=== PATIENT | female | born 1990 | race African-American/Black ===

== ENCOUNTER 2018-12-05 21:15 | Inpatient (IN) | payer OTHER ==
[2018-12-05] MEDS ORDERED: ASPIRIN 81 MG CHEWABLE TABLETS PO ONE (21:21)
--- NOTE | 2018-12-05 21:21 | PDOC ---
Rapid Medical Evaluation Time Seen by Provider: 12/05/18 21:18 Medical Evaluation: Allergies Allergy/AdvReac Type Severity Reaction Status Date / Time No Known Allergies Allergy Verified 12/26/15 18:49 12/05/18 21:18 HPI: foot swelling and palpatations x2 days with associated CP and SOB; denies possibility of PE: no gross deficits ORDERS: BNP Cardiac work up EKG Discharge Disposition - Diagnosis Heart palpitations, SOB (shortness of breath) - Referrals - Patient Instructions - Post Discharge Activity
[2018-12-05 21:25] VITALS: BMI 26.6
--- NOTE | 2018-12-05 23:26 | PDOC ---
*Physical Exam - Vital Signs Last Vital Signs Temp Pulse Resp BP Pulse Ox 97.5 F L 70 20 136/81 100 12/05/18 21:22 12/05/18 21:22 12/05/18 21:22 12/05/18 21:22 12/05/18 21:22 Medical Decision Making - Medical Decision Making 12/05/18 23:25 Patient seen by the advanced practice provider under my direct supervision. Ancillary testing reviewed as necessary. I agree with plan as outlined by the advanced practice provider. *DC/Admit/Observation/Transfer Diagnosis at time of Disposition: Heart palpitations, SOB (shortness of breath) - Referrals - Patient Instructions - Post Discharge Activity
[2018-12-05] MEDS ORDERED: ASPIRIN 81 MG CHEWABLE TABLETS ONE (23:28)
--- NOTE | 2018-12-05 23:41 | PDOC ---
History of Present Illness - General Chief Complaint: Palpitations Stated Complaint: FEET SWELLING/PALPATION Time Seen by Provider: 12/05/18 21:18 History Source: Patient - History of Present Illness Initial Comments: 12/05/18 23:37 28 year old female with b/l feet swelling and palpitations 4 days ago. patient reports that she has been having palpations on and off. patient c/o chest pain worse with breathing. denies health supplements use or drug abuse. patient reports she traveled to [facility] 1 month ago 12/05/18 23:40 12/05/18 23:43 Past History - Past Medical History Allergies/Adverse Reactions: Allergies Allergy/AdvReac Type Severity Reaction Status Date / Time No Known Allergies Allergy Verified 12/26/15 18:49 Home Medications: Ambulatory Orders Famotidine [Pepcid] 20 mg PO BID #60 tablet 12/27/15 Asthma: No Cancer: No Cardiac Disorders: No CVA: No COPD: No CHF: No - Suicide/Smoking/Psychosocial Hx Smoking History: Never smoked Have you smoked in the past 12 months: No Hx Alcohol Use: Yes Drug/Substance Use Hx: No Substance Use Type: Alcohol Cardiac Specific PMH - Complaint Specific PMHX Myocardial Infarction: No Review of Systems - Review of Systems Able to Perform ROS?: Yes Is the patient limited Moldovan proficient: No Cardiac (ROS): Yes: Chest Pain, Lightheadedness, Palpitations, Chest Tightness ABD/GI: Yes: Nausea. No: Symptoms Reported, See HPI, Abdominal Distended, Abd. Pain w/ defecation, Blood Streaked Bowels, Constipated, Diarrhea, Difficulty Swallowing, Poor Appetite, Poor Fluid Intake, Rectal Bleeding, Vomiting, Indigestion, Abdominal cramping, Tarry Stools, Other Integumentary: Yes: Other (Edema) *Physical Exam - Vital Signs Last Vital Signs Temp Pulse Resp BP Pulse Ox 98.1 F 68 20 128/69 97 12/06/18 02:45 12/06/18 03:15 12/06/18 03:15 12/06/18 03:15 12/06/18 03:16 - Physical Exam General Appearance: Yes: Appropriately Dressed Respiratory/Chest: positive: Lungs Clear, Normal Breath Sounds Cardiovascular: positive: Regular Rhythm, Regular Rate Gastrointestinal/Abdominal: positive: Normal Bowel Sounds, Soft. negative: Tender Musculoskeletal: positive: Normal Inspection Extremity: positive: Pedal Edema (b/l ) Integumentary: positive: Normal Color, Dry, Warm Neurologic: positive: supervisor international reservations II-XII NML intact, Fully Oriented, Alert, Normal Mood/ Affect Heart Score/ECG Review - History History: Slightly suspicious - Electrocardiogram EKG: Normal - Age Age: </= 45 - Risk Factors Based on the list above the patient has:: No risk factors known - Troponin Troponin: </= normal limit - Score Heart Score - Total: 0 - ECG Intrepretation Rhythm: Regular Rhythm Comment:: 12/06/18 05:26 Sinus bradycardia : 59 bpm ED Treatment Course - LABORATORY CBC & Chemistry Diagram: 12/05/18 23:45 12/05/18 23:45 - ADDITIONAL ORDERS Additional order review: Laboratory Results 12/06/18 12/06/18 12/05/18 00:27 00:27 23:45 PT with INR 16.60 H INR 1.40 H D-Dimer 547 H Sodium Potassium Chloride Carbon Dioxide Anion Gap BUN Creatinine Est GFR (CKD-EPI)AfAm Est GFR (CKD-EPI)NonAf Random Glucose Calcium Magnesium Total Bilirubin AST ALT Alkaline Phosphatase Creatine Kinase Creatine Kinase Index CK-MB (CK-2) Troponin I B-Natriuretic Peptide Total Protein Albumin Serum , Qual Negative 12/05/18 12/05/18 12/05/18 23:45 23:45 23:45 PT with INR INR D-Dimer Sodium 141 Cancelled Potassium 3.3 L Cancelled Chloride 107 Cancelled Carbon Dioxide 27 Cancelled Anion Gap 7 L Cancelled BUN 10.7 Cancelled Creatinine 0.8 Cancelled Est GFR (CKD-EPI)AfAm 117.10 Cancelled Est GFR (CKD-EPI)NonAf 101.04 Cancelled Random Glucose 94 Cancelled Calcium 9.3 Cancelled Magnesium 2.2 Total Bilirubin 0.4 Cancelled AST 172 H Cancelled ALT 142 H Cancelled Alkaline Phosphatase 69 Cancelled Creatine Kinase 814 H Creatine Kinase Index 0.8 CK-MB (CK-2) 7.2 H Troponin I < 0.02 B-Natriuretic Peptide 51.8 Total Protein 8.1 Cancelled Albumin 4.1 Cancelled Serum , Qual 12/05/18 23:45 RBC 4.26 MCV 75.4 L MCHC 31.9 L RDW 21.3 H MPV 8.6 Neutrophils % 39.1 L D Lymphocytes % 50.0 H D Monocytes % 8.9 Eosinophils % 1.1 D Basophils % 0.9 - RADIOLOGY Radiology Studies Ordered: Category Date Time Status CHEST CTA [CT] Stat CT Scan 12/06/18 01:01 Taken DUPLEX VASCUL US-2LEGS [US] Stat Ultrasound 12/06/18 01:20 Taken - Medications Given in the ED: ED Medications Discontinued Medications Generic Name Dose Route Start Last Admin Trade Name Freq PRN Reason Stop Dose Admin Aspirin 162 mg 12/05/18 21:21 12/05/18 23:20 Asa - PO 12/05/18 21:22 162 mg ONCE ONE Administration Medical Decision Making - Medical Decision Making 12/06/18 01:05 A: pleuritic chest pain P: cbc cmp d-dimer cardiac enzymes 12/06/18 03:20 US: no dvt 12/06/18 05:08 patient signed out to Dr. whitman for obs tele pending repeat cardiac enzymes *DC/Admit/Observation/Transfer Diagnosis at time of Disposition: Heart palpitations, SOB (shortness of breath) - Discharge Dispostion Decision to Admit order: Yes Decision to Admit order Date/Time: Decision to Admit Order Category Date Time Status Decision to Admit to Hospital Routine Admission 12/06/18 04:58 Active - Referrals - Patient Instructions - Post Discharge Activity
[2018-12-05 23:52] LABS: BASO % 0.9 % (0-2.0); EOS % 1.1 % (0-4.5); HEMATOCRIT 32.1 % (32.4-45.2); HEMOGLOBIN 10.2 GM/dL (10.7-15.3); MCHC 31.9 g/dl (32.0-36.0); MEAN CELL VOLUME 75.4 fl (80-96); MEAN PLT VOLUME 8.6 fl (7.5-11.1); MONO % 8.9 % (3.8-10.2); NEUT % 39.1 % (42.8-82.8); PLATELET COUNT 251 K/MM3 (134-434); RBC 4.26 M/mm3 (3.60-5.2); RDW 21.3 % (11.6-15.6); WHITE BLOOD COUNT 4.6 K/mm3 (4.0-10.0)
[2018-12-06 00:18] LABS: MAGNESIUM 2.2 mg/dL (1.8-2.4)
[2018-12-06 00:20] LABS: ALBUMIN 4.1 g/dl (3.4-5.0); BILIRUBIN,TOTAL 0.4 mg/dL (0.2-1); BLOOD UREA NITROGEN 10.7 mg/dL (7-18); CALCIUM 9.3 mg/dL (8.5-10.1); CREATININE 0.8 mg/dL (0.55-1.3); N-TERMINAL BNP 51.8 pg/ml (5-125); POTASSIUM 3.3 mmol/L (3.5-5.1); TOT PROT 8.1 g/dl (6.4-8.2)
[2018-12-06 00:40] LABS: INR 1.4 (0.83-1.09); PROTHROMBIN TIME (PATIENT) 16.6 SEC (9.7-13.0)
[2018-12-06 03:34] LABS: ANISOCYTOSIS 2+; MACROCYTOSIS 0; OVALOCYTE 1+; PLATELET ESTIMATE NORMAL; TEAR DROP CELLS 1+
[2018-12-06] MEDS ORDERED: SODIUM CHLORIDE 500 ML IV STA (04:59)
[2018-12-06] MEDS ORDERED: POTASSIUM CHLORIDE TABS 20 MEQ TABLET.ER (FP) PO ONE ×2 (05:07→05:21)
[2018-12-06] MEDS ORDERED: DEXTROSE 5%-0.45% SALINE 1,000 ML IV SCH (06:45)
--- NOTE | 2018-12-06 08:22 | EKG ---
Test Reason : Blood Pressure : / mmHG Vent. Rate : 059 BPM Atrial Rate : 059 BPM P-R Int : 200 ms QRS Dur : 078 ms QT Int : 398 ms P-R-T Axes : 069 070 065 degrees QTc Int : 394 ms SINUS BRADYCARDIA OTHERWISE NORMAL ECG NO PREVIOUS ECGS AVAILABLE Confirmed by VASYL MOSQUEDA, MARIO ([id number]) on 12/06/2018 8:22:02 AM Referred By: Confirmed By:MARIO FALLON MD
[2018-12-06 10:49] LABS: BASO % 1.3 % (0-2.0); EOS % 0.8 % (0-4.5); HEMATOCRIT 32.1 % (32.4-45.2); HEMOGLOBIN 10.4 GM/dL (10.7-15.3); LYMPH % 43.1 % (8-40); MCH 24.3 pg (25.7-33.7); MCHC 32.5 g/dl (32.0-36.0); MEAN CELL VOLUME 74.6 fl (80-96); MEAN PLT VOLUME 8.5 fl (7.5-11.1); MONO % 8.5 % (3.8-10.2); NEUT % 46.3 % (42.8-82.8); PLATELET COUNT 250 K/MM3 (134-434); RDW 21.6 % (11.6-15.6)
[2018-12-06 11:20] LABS: ALBUMIN 4.1 g/dl (3.4-5.0); ALK PHOS 74 U/L (45-117); ANION GAP 5 MMOL/L (8-16); BILIRUBIN,TOTAL 0.5 mg/dL (0.2-1); BLOOD UREA NITROGEN 7.7 mg/dL (7-18); CALCIUM 9.3 mg/dL (8.5-10.1); CHLORIDE 108 mmol/L (98-107); CO2 27 mmol/L (21-32); CREATININE 0.8 mg/dL (0.55-1.3); GLUCOSE,RANDOM 89 mg/dL (74-106); POTASSIUM 3.8 mmol/L (3.5-5.1); SGOT/AST 146 U/L (15-37); SGPT/ALT 158 U/L (13-61); SODIUM 140 mmol/L (136-145)
--- NOTE | 2018-12-06 11:53 | CON.CARD ---
Consult Consult Specialty:: Cardiology - History of Present Illness History of Present Illness: 28 year old female with b/l feet swelling and palpitations 4 days ago. patient reports that she has been having palpations on and off. patient c/o chest pain worse with breathing. denies health supplements use or drug abuse. patient reports she traveled to [facility] 1 month ago - History Source History Provided By: Patient, Medical Record - Past Medical History ...LMP: 12/04/18 ...: (denies) - Alcohol/Substance Use Hx Alcohol Use: Yes (social) - Smoking History Smoking history: Never smoked Have you smoked in the past 12 months: No Home Medications - Allergies Allergies/Adverse Reactions: Allergies Allergy/AdvReac Type Severity Reaction Status Date / Time No Known Allergies Allergy Verified 12/26/15 18:49 - Home Medications Home Medications: Ambulatory Orders Famotidine [Pepcid] 20 mg PO BID #60 tablet 12/27/15 Review of Systems - Review of Systems Constitutional: reports: No Symptoms Eyes: reports: No Symptoms HENT: reports: No Symptoms Neck: reports: No Symptoms Cardiovascular: reports: Chest Pain, Palpitations Respiratory: reports: No Symptoms Gastrointestinal: reports: No Symptoms Genitourinary: reports: No Symptoms Breasts: reports: No Symptoms Reported Musculoskeletal: reports: No Symptoms Integumentary: reports: No Symptoms Neurological: reports: No Symptoms Endocrine: reports: No Symptoms Hematology/Lymphatic: reports: No Symptoms Psychiatric: reports: No Symptoms Vital Signs: Vital Signs Temperature 98 F 12/06/18 11:38 Pulse Rate 66 12/06/18 11:38 Respiratory Rate 18 12/06/18 11:38 Blood Pressure 118/68 12/06/18 11:38 O2 Sat by Pulse Oximetry (%) 100 12/06/18 11:01 Constitutional: Yes: Well Nourished, No Distress, Calm Eyes: Yes: WNL, Conjunctiva Clear, EOM Intact HENT: Yes: WNL, Atraumatic, Normocephalic Neck: Yes: WNL, Supple, Trachea Midline Respiratory: Yes: WNL, Regular, CTA Bilaterally Gastrointestinal: Yes: WNL, Normal Bowel Sounds Renal/: Yes: WNL Cardiovascular: Yes: WNL, Regular Rate and Rhythm Musculoskeletal: Yes: WNL Extremities: Yes: WNL Integumentary: Yes: WNL Neurological: Yes: WNL, Alert, Oriented ...Motor Strength: WNL Psychiatric: Yes: WNL, Alert, Oriented - Other Data Labs, Other Data: CBC, BMP 12/06/18 10:40 12/06/18 10:40 INR, PTT INR 1.40 (0.83-1.09) H 12/05/18 23:45 Troponin, BNP 12/05/18 12/05/18 12/06/18 23:45 23:45 05:20 Troponin I < 0.02 < 0.02 B-Natriuretic Peptide 51.8 Troponin, BNP 12/05/18 12/05/18 12/06/18 23:45 23:45 05:20 Troponin I < 0.02 < 0.02 B-Natriuretic Peptide 51.8 Imaging - Results Cat Scan: Report Reviewed (no pe) EKG: Image Reviewed (s maryanne o/w wnl) Problem List - Problems (1) Heart palpitations Code(s): R00.2 - PALPITATIONS (2) SOB (shortness of breath) Code(s): R06.02 - SHORTNESS OF BREATH (3) Abnormal vaginal bleeding Code(s): N93.9 - ABNORMAL UTERINE AND VAGINAL BLEEDING, UNSPECIFIED (4) GERD (gastroesophageal reflux disease) Code(s): K21.9 - GASTRO-ESOPHAGEAL REFLUX DISEASE WITHOUT ESOPHAGITIS (5) Metrorrhagia Code(s): N92.1 - EXCESSIVE AND FREQUENT MENSTRUATION WITH IRREGULAR CYCLE (6) UTI (urinary tract infection) Code(s): N39.0 - URINARY TRACT INFECTION, SITE NOT SPECIFIED Assessment/Plan palpitations atypical cp no PE on CTA elevated LFTs h/o travel to [facility] bnp elevated CK neg tnis Plan; telemetry 24 holter echo GI eval will f/u
--- NOTE | 2018-12-06 12:16 | ECHO ---
Name: ARCHANA COLORADO Exam:Adult Echocardiogram Study Date: 12/06/2018 08:16 AM Age: 28 yrs Reason For Study: Chest pain Height: 66 in Weight: 165 lb BSA: 1.8 m2 MMode/2D Measurements & Calculations IVSd: 1.1 cm Ao root diam: 2.4 cm LVIDd: 3.8 cm LA dimension: 3.0 cm LVIDs: 2.6 cm LVPWd: 1.1 cm EDV(Teich): 62.7 ml LVOT diam: 2.0 cm ESV(Teich): 25.3 ml LAV (MOD-bp): 41.0 ml Doppler Measurements & Calculations MV E max xander: 108.0 cm/sec Ao V2 max: 166.0 cm/sec MV A max xander: 86.3 cm/sec Ao max P.0 mmHg MV E/A: 1.3 MV dec time: 0.16 sec NADER(V,D): 1.8 cm2 LV V1 max P.7 mmHg MR max xander: 360.0 cm/sec LV V1 max: 96.0 cm/sec MR max P.8 mmHg TR max xander: 228.0 cm/sec PA V2 max: 107.0 cm/sec TR max P.8 mmHg PA max P.6 mmHg Med Peak E' Xander: 9.9 cm/sec PI Vmax: 90.9 cm/sec Med E/e': 10.9 Lat Peak E' Xander: 16.1 cm/sec Lat E/e': 6.7 Procedure A two-dimensional transthoracic echocardiogram with color flow and Doppler was performed. Left Ventricle The left ventricular size, thickness and function are normal. The left ventricular ejection fraction is normal. Left Ventricular Filling pattern is normal for age. The left ventricular wall motion is julio c l. Right Ventricle The right ventricle is normal in size and function. Atria Normal left and right atrial size and function. Mitral Valve There is trivial mitral valve thickening. There is no mitral valve stenosis. There is mild mitral regurgitation. Tricuspid Valve The tricuspid valve is normal in structure and function. There is no tricuspid stenosis. There is mil d tricuspid regurgitation. Right ventricular systolic pressure is normal. Aortic Valve The aortic valve is normal in structure and function. No hemodynamically significant valvular aortic stenosis. No aortic regurgitation is present. Pulmonic Valve The pulmonic valve is not well visualized. There is no pulmonic valvular stenosis. Trace to mild pulm onic valvular regurgitation. Great Vessels The aortic root is normal size. Pericardium/Pleura There is no pericardial effusion. Interpretation Summary The left ventricular size, thickness and function are normal The left ventricular ejection fraction is normal. The left ventricular wall motion is normal. There is mild tricuspid regurgitation. Right ventricular systolic pressure is normal. Left Ventricular Filling pattern is normal for age. There is mild mitral regurgitation. MD Bradly Vásquez 12/06/2018 12:15 PM
--- NOTE | 2018-12-06 17:27 | HP ---
Admitting History and Physical - Past Medical History ...LMP: 12/04/18 ...: (denies) - Smoking History Smoking history: Never smoked Have you smoked in the past 12 months: No - Alcohol/Substance Use Hx Alcohol Use: Yes (social) Home Medications - Allergies Allergies/Adverse Reactions: Allergies Allergy/AdvReac Type Severity Reaction Status Date / Time No Known Allergies Allergy Verified 12/26/15 18:49 - Home Medications Home Medications: Ambulatory Orders Famotidine [Pepcid] 20 mg PO BID #60 tablet 12/27/15 Physical Examination Vital Signs: Vital Signs Temperature 97.9 F 12/06/18 14:40 Pulse Rate 72 12/06/18 14:40 Respiratory Rate 18 12/06/18 14:40 Blood Pressure 117/60 12/06/18 14:40 O2 Sat by Pulse Oximetry (%) 100 12/06/18 11:01 Labs: CBC, BMP 12/06/18 10:40 12/06/18 10:40 Problem List - Problems (1) Chest pain Code(s): R07.9 - CHEST PAIN, UNSPECIFIED (2) Elevated LFTs Code(s): R94.5 - ABNORMAL RESULTS OF LIVER FUNCTION STUDIES (3) Heart palpitations Code(s): R00.2 - PALPITATIONS (4) SOB (shortness of breath) Code(s): R06.02 - SHORTNESS OF BREATH (5) Elevated CPK Code(s): R74.8 - ABNORMAL LEVELS OF OTHER SERUM ENZYMES
--- NOTE | 2018-12-07 08:43 | PN ---
Progress Note, Physician Chief Complaint: Pt A&Ox3; no chest pain or abdominal pain. No palpitations overnight. History of Present Illness: 28 year old black woman (b. [place]), with b/l feet swelling and palpitations 4 days ago. patient reports that she has been having palpations on and off. patient c/o chest pain worse with breathing. denies health supplements use or drug abuse; rare glass of alcohol. 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 - Current Medication List Current Medications: Active Medications Dextrose/Sodium Chloride (D5-1/2ns -) 1,000 mls @ 75 mls/hr IV ASDIR DEEPTI Last Admin: 12/06/18 23:44 Dose: 75 mls/hr - Objective Vital Signs: Vital Signs Temperature 98 F 12/07/18 06:00 Pulse Rate 64 12/07/18 06:00 Respiratory Rate 18 12/07/18 06:00 Blood Pressure 118/83 12/07/18 06:00 O2 Sat by Pulse Oximetry (%) 98 12/06/18 21:00 Constitutional: Yes: Well Nourished, Calm Eyes: Yes: WNL HENT: Yes: WNL Neck: Yes: WNL Cardiovascular: Yes: WNL Respiratory: Yes: WNL Gastrointestinal: Yes: Soft. No: Tenderness ...Rectal Exam: Yes: Deferred Genitourinary: No: Anuria Breast(s): Yes: WNL Musculoskeletal: Yes: WNL Extremities: Yes: WNL Edema: No Peripheral Pulses WNL: Yes Integumentary: Yes: Tattoos Wound/Incision: Yes: Other (no lesions) Neurological: Yes: WNL Psychiatric: Yes: WNL Labs: CBC, BMP 12/06/18 10:40 12/06/18 10:40 INR, PTT INR 1.40 (0.83-1.09) H 12/05/18 23:45 Abnormal Lab Results 12/06/18 12/06/18 12/07/18 10:40 10:40 06:16 Hgb 10.4 L Hct 32.1 L MCV 74.6 L MCH 24.3 L RDW 21.6 H Lymphocytes % 43.1 H Chloride 108 H Anion Gap 5 L AST 146 H ALT 158 H Creatine Kinase 664 H 422 H CK-MB (CK-2) 5.3 H - ....Imaging Cat Scan: Image Reviewed (CT chest: no DVT) EKG: Image Reviewed (mild sinus bradycardia) Other: Image Reviewed (telemetry: NSR; no arrhythmias) Problem List - Problems (1) Elevated CPK Assessment/Plan: NI < 0.02 x 3 EKG: NSR; no acute ST-T changes ECHO: normal LVEF; normal cahmber sizes; mild MR Code(s): R74.8 - ABNORMAL LEVELS OF OTHER SERUM ENZYMES (2) Elevated LFTs Assessment/Plan: Pt uses Tylenol on occasion for menstrual pain, but not to excess. Rare glass of alcohol. For abdominal US. GI evaluation Code(s): R94.5 - ABNORMAL RESULTS OF LIVER FUNCTION STUDIES (3) Heart palpitations Code(s): R00.2 - PALPITATIONS (4) Abnormal vaginal bleeding Code(s): N93.9 - ABNORMAL UTERINE AND VAGINAL BLEEDING, UNSPECIFIED (5) GERD (gastroesophageal reflux disease) Code(s): K21.9 - GASTRO-ESOPHAGEAL REFLUX DISEASE WITHOUT ESOPHAGITIS (6) Bilateral swelling of feet Assessment/Plan: now resolved; denies previous epsodes. (Recent travel to [facility] did not result in pedal edema). ECHO: normal LVEF; mild MR Albumin: WNL +anemia Elevated LFTS and CK Noted milldy hypokalemic. Code(s): M79.89 - OTHER SPECIFIED SOFT TISSUE DISORDERS (7) Atypical chest pain Code(s): R07.89 - OTHER CHEST PAIN
[2018-12-07 09:03] LABS: CHOLESTEROL 132 mg/dL (50-200); HDL CHOLESTEROL 55 mg/dL (40-60); TRIGLYCERIDES 47 mg/dL (0-150)
[2018-12-07 12:11] VITALS: BP 121/69; PULSE 66; TEMP 98.2
--- NOTE | 2018-12-08 14:31 | HOL ---
Hook-up date: 2018-12-07 13:17:00 Duration: 23:43:00 Test Indications: PALPITATIONS,ELEVATED CK AND LFT Medications: [id number] QRS complexes 12 Ventricular ectopics which represent <1 % of total QRS comp. * Supraventricular ectopics which represent % of total QRS comp. * Paced QRS complexs which represent % of total QRS comp. * % of Time Classified as Noise VENTRICULAR ECTOPY 12 Isolated 0 Bigeminal Cycles 0 Couplets 0 Runs 0 Beats in Runs * Beats LONGEST at * BPM at :: -- * Beats FASTEST at * BPM at :: -- SUPRAVENTRICULAR ECTOPY * Isolated * Couplets * Runs * Beats in Runs * Beats LONGEST at * BPM at :: -- * Beats FASTEST at * BPM at :: -- HEART RATES 48 MIN at 20:33:48 2018-12-07 72 AVG 138 MAX at 12:49:52 2018-12-08 LONGEST RR 1.376 secs at 05:24:16 2018-12-08 The underlying rhythm was normal sinus with an average rate of 72bpm. There were intermittent periods of sinus tachycardia. Rare, single premature ventricular contractions. No sustained arrhythmias; no significant pauses. No diary entries. Confirmed by DUGLAS SAENZ MD ([id number]) on 12/08/2018 2:30:34 PM Referred By[facility] Overread By: DUGLAS SAENZ MD
== END 2018-12-07 15:42 | disposition home or self-care (01) | DRG 201 ==
LOC: JER 21:15 → JERBED 12-06 04:58 → OBSVTOIN 12-06 06:33 → J4W 12-06 11:14
PROVIDERS: ADMIT Internal Medicine; ATTEND Internal Medicine
DX: R00.2 Palpitations (principal); E87.6 Hypokalemia; R07.81 Pleurodynia; R74.8 Abnormal levels of other serum enzymes; R94.5 Abnormal results of liver function studies; D64.9 Anemia, unspecified; K21.9 Gastro-esophageal reflux disease without esophagitis
CPT/HCPCS: 36415; 71275-TC; 76705-TC; 80053; 80061; 82550; 82553; 83721; 83735; 83880; 84443; 84484; 84703; 85025; 85379; 85610; 93005; 93010; 93225; 93226; 93306-TC; 93970-TC; 99285-25; G0378

== ENCOUNTER 2020-07-24 02:38 | Emergency (ER) | payer OTHER ==
[2020-07-24 02:55] VITALS: BMI 25.8
[2020-07-24 04:24] LABS: ALBUMIN 3.8 g/dl (3.4-5.0); BLOOD UREA NITROGEN 6.6 mg/dL (7-18); CALCIUM 9.1 mg/dL (8.5-10.1)
[2020-07-24 04:27] LABS: CREATININE 0.7 mg/dL (0.55-1.3)
[2020-07-24 04:29] LABS: BILIRUBIN,TOTAL 0.3 mg/dL (0.2-1); TOT PROT 7.2 g/dl (6.4-8.2)
[2020-07-24 04:33] LABS: BASO % 0.2 % (0-2.0); HEMATOCRIT 29.2 % (32.4-45.2); HEMOGLOBIN 9.8 GM/dL (10.7-15.3); LYMPH % 10.7 % (8-40); MCH 24.6 pg (25.7-33.7); MCHC 33.6 g/dl (32.0-36.0); MEAN CELL VOLUME 73.3 fl (80-96); MEAN PLT VOLUME 9.8 fl (7.5-11.1); MONO % 6.8 % (3.8-10.2); NEUT % 82.3 % (42.8-82.8); PLATELET COUNT 217 K/MM3 (134-434); RBC 3.99 M/mm3 (3.60-5.2); RDW 20.9 % (11.6-15.6); WHITE BLOOD COUNT 6.8 K/mm3 (4.0-10.0)
[2020-07-24 09:08] LABS: ANISOCYTOSIS 3+; MACROCYTOSIS 0; PLATELET ESTIMATE NORMAL; TARGET CELLS 0
[2020-07-24 10:23] VITALS: BP 120/56; PULSE 87; TEMP 98.3
== END 2020-07-24 10:51 ==
LOC: JER 02:38
DX: O04.80 (Induced) termination of pregnancy with unspecified complications (principal)
CPT/HCPCS: 36415; 76801-TC; 80053; 84702; 85025; 86850; 86900; 86901; 99284-25